=== PATIENT | male | born 1995 | race African-American/Black ===

== ENCOUNTER 2025-08-25 09:33 | Emergency (ER) | payer OTHER ==
[~2025-08-25] VITALS: Ht 177.8 cm; Wt 82.0 kg
[2025-08-25 09:37] VITALS: O2SAT 100
[2025-08-25] MEDS ORDERED: KETOROLAC 30MG/ML VIAL IM ONE (10:00)
[2025-08-25] MEDS ORDERED: CYCLOBENZAPRINE 10MG TABLET PO ONE (10:00)
[2025-08-25] MEDS: KETOROLAC 30MG/ML VIAL IM SCH (10:07)
[2025-08-25] MEDS: LIDOCAINE 5% PATCH TOP SCH (10:08)
[2025-08-25] MEDS: CYCLOBENZAPRINE 10MG TABLET PO SCH (10:08)
[2025-08-25] MEDS ORDERED: LIDO-53 TP (10:14)
[2025-08-25] MEDS ORDERED: CYCL5TAB3 MT (10:14)
[2025-08-25 10:18] VITALS: BP 115/66; PULSE 59; RESP 16; TEMP 36.8; O2SAT 100
== END 2025-08-25 10:19 | disposition home or self-care (01) ==
LOC: ER 09:33
DX: M54.50 Low back pain, unspecified (principal)
CPT/HCPCS: 96372; 99283; J1885; Z7610